=== PATIENT | female | born 1995 | race Caucasian/White ===

== ENCOUNTER 2019-06-17 18:57 | Emergency (ER) | payer OTHER ==
[~2019-06-17] VITALS: Ht 160 cm; Wt 65.8 kg
[2019-06-17 19:08] VITALS: BP_SYST 136
== END 2019-06-17 20:00 | disposition left against medical advice (07) ==
LOC: SED 18:57
DX: R07.89 Other chest pain (principal); Z53.21 Procedure and treatment not carried out due to patient leaving prior to being seen by health care provider